=== PATIENT | female | born 1945 | race Native Hawaiian/Other Pacific Islander ===

== ENCOUNTER 2021-02-15 12:25 | Inpatient (IN) | payer MEDICARE, OTHER ==
[2021-02-15 13:44] LABS: #Eosinphils 0.4 10x3/uL (0.0-0.5); #Monocytes 0.6 10x3/uL (0.0-1.1); #Neutrophils 4.9 10x3/uL (1.5-8.4); %Basophils 0.6 % (0.0-2.0); %Eosinophils 6.1 % (0.0-6.0); %Lymphocytes 11.5 % (18.0-47.0); %Monocytes 9.2 % (0.0-10.0); %Neutrophils 72.2 % (40.0-75.0); Hemoglobin 6.6 g/dL (12.0-15.5); Mean Corpuscular HGB CONC 31.4 g/dL (32.0-36.0); Mean Corpuscular Hemoglobin 31.1 pg (27.0-33.0); Mean Corpuscular Volume 99.1 fl (81.6-98.3); Mean Platelet Volume 10.5 fl (7.4-10.4); Platelet Count 254 10x3/uL (150-450); RBC Distribution Width 13.6 % (11.5-14.5); Red Blood Cell (RBC) Count 2.12 10x6/uL (3.90-5.03); White Blood Cell (WBC) Count 6.8 10x3/uL (3.5-10.5)
[2021-02-15 13:50] LABS: ALT (SGPT) 13 U/L (8-55); AST (SGOT) 14 U/L (5-34); Albumin 3.3 g/dL (3.4-4.8); Alkaline Phosphatase 73 U/L (40-110); Anion Gap 20 mmol/L (10-20); BUN (Urea Nitrogen) 124 mg/dL (9.8-20.1); Bilirubin, Total 0.7 mg/dL (0.2-1.2); Calc. Creatinine Clearance 0 mL/min (70-130); Calcium 8.7 mg/dL (7.8-10.44); Carbon Dioxide 22 mmol/L (23-31); Chloride 104 mmol/L (98-107); Globulin 2.2 g/dL (2.4-3.5); Glucose 191 mg/dL (83-110); Magnesium 2.6 mg/dL (1.6-2.6); Potassium 4.8 mmol/L (3.5-5.1); Protein, Total 5.5 g/dL (5.8-8.1); Sodium 141 mmol/L (136-145)
[2021-02-15 13:58] LABS: Phosphorus 7.4 mg/dL (2.3-4.7)
[2021-02-15 14:42] LABS: CKMB 2.1 ng/mL (0-6.6)
[2021-02-15] MEDS ORDERED: Senokot S 8.6-50 MG TAB PO PRN (15:39)
[2021-02-15] MEDS ORDERED: Ondansetron PF 4 MG/2 ML Vial IVP PRN (15:39)
[2021-02-15] MEDS ORDERED: HYDROcodone/Acetaminophen 5/325 mg Tablet PO PRN (15:39)
[2021-02-15] MEDS ORDERED: Calcium Carbonate 500 MG ChewTAB PO PRN (15:39)
[2021-02-15] MEDS ORDERED: Acetaminophen 325 MG TAB PO PRN (15:39)
[2021-02-15] MEDS ORDERED: Furosemide 100 MG/10 ML VIAL SLOW IVP SCH (15:45)
[2021-02-15] MEDS ORDERED: HumaLOG 300 UNITS/3 ML VIAL SC PRN (16:06)
[2021-02-15] MEDS ORDERED: Dextrose 50% Abboject 50 ML SYRINGE SLOW IVP PRN (16:06)
[2021-02-15] MEDS ORDERED: Dextrose 5% in Water 1,000 ML IV PRN (16:06)
[2021-02-15 16:59] VITALS: BMI 32.7
[2021-02-15] MEDS: hydrALAZINE 20 MG/ML VIAL SLOW IVP PRN ×2 (18:32→21:50)
[2021-02-15 19:46] LABS: Troponin I 0.098 ng/mL (< 0.028)
[2021-02-16] MEDS ORDERED: cloNIDine 0.1 MG TAB PO SCH (00:30)
[2021-02-16] MEDS ORDERED: NIFEdipine XL 60 MG TAB PO SCH (01:00)
[2021-02-16] MEDS: hydrALAZINE 20 MG/ML VIAL SLOW IVP PRN (04:02)
[2021-02-16 06:08] LABS: #Eosinphils 0.8 10x3/uL (0.0-0.5); #Monocytes 0.9 10x3/uL (0.0-1.1); #Neutrophils 6.3 10x3/uL (1.5-8.4); %Basophils 0.4 % (0.0-2.0); %Eosinophils 8.3 % (0.0-6.0); %Lymphocytes 12.1 % (18.0-47.0); %Monocytes 9.6 % (0.0-10.0); %Neutrophils 68.1 % (40.0-75.0); Hemoglobin 7.9 g/dL (12.0-15.5); Mean Corpuscular HGB CONC 31.9 g/dL (32.0-36.0); Mean Corpuscular Volume 94.3 fl (81.6-98.3); Mean Platelet Volume 10.2 fl (7.4-10.4); Platelet Count 316 10x3/uL (150-450); RBC Distribution Width 17.2 % (11.5-14.5); Red Blood Cell (RBC) Count 2.63 10x6/uL (3.90-5.03); White Blood Cell (WBC) Count 9.2 10x3/uL (3.5-10.5)
[2021-02-16 06:16] LABS: Anion Gap 22 mmol/L (10-20); BUN (Urea Nitrogen) 122 mg/dL (9.8-20.1); Calc. Creatinine Clearance 4 mL/min (70-130); Calcium 9.2 mg/dL (7.8-10.44); Carbon Dioxide 19 mmol/L (23-31); Chloride 106 mmol/L (98-107); Glucose 111 mg/dL (83-110); Iron 56 ug/dL (50-170); Iron Binding Capacity, Total 165 mcg/dL (265-497); Potassium 4.4 mmol/L (3.5-5.1); Sodium 143 mmol/L (136-145)
[2021-02-16] MEDS ORDERED: Mometasone 100 MCG/Formoterol 5 MCG 120 PUFF INHALER INH SCH (06:30)
[2021-02-16 06:47] LABS: Ferritin 840.75 ng/mL (10-291)
[2021-02-16] MEDS ORDERED: Metolazone 5 MG TAB PO SCH (08:30)
[2021-02-16] MEDS ORDERED: Sevelamer Carbonate 800 MG TAB PO SCH (08:30)
[2021-02-16 08:31] LABS: HBSAg Index 0.14 S/CO (0-0.99); Hep B Surf Ag NonReactive S/CO (NonReactive)
[2021-02-16] MEDS ORDERED: Metolazone 2.5 MG TAB PO SCH (09:00)
[2021-02-16] MEDS ORDERED: Furosemide 100 MG/10 ML VIAL SLOW IVP SCH (09:00)
[2021-02-16] MEDS: Calcitriol 0.25 MCG CAP PO SCH (09:29)
[2021-02-16] MEDS: Carvedilol 25 MG TAB PO SCH ×2 (09:29→20:00)
[2021-02-16] MEDS: Enoxaparin Sodium 30 MG/0.3 ML SYRINGE SC SCH (09:29)
[2021-02-16] MEDS: NIFEdipine XL 60 MG TAB PO SCH (09:30)
[2021-02-16] MEDS: EPOETIN ALFA-EPBX (ESRD) 10,000 UNIT/ML VIAL SC SCH (09:30)
[2021-02-16] MEDS: hydrALAZINE 25 MG TAB PO SCH ×2 (09:30→14:17)
[2021-02-16] MEDS: Sevelamer Carbonate 800 MG TAB PO SCH ×2 (11:10→17:42)
[2021-02-16 11:32] LABS: Hemoglobin A1c 4.9 % (4.0-6.0)
[2021-02-16 12:17] LABS: Vitamin B12 744 pg/mL (211-911)
[2021-02-16 12:27] LABS: HBCM Index 0.04 S/CO (0-0.79); Hep A IgM AB Non-Reactive (NonReactive); Hep A IgM S/CO 0.26 S/CO (0-0.79); Hep C IgG Ab Non-Reactive (NonReactive); Hep C Index 0.05 S/CO (0-0.79); Hepatitis B Core IgM Abs Non-Reactive (NonReactive)
[2021-02-16] MEDS: Furosemide 40 MG/4 ML VIAL SLOW IVP SCH (14:17)
[2021-02-16] MEDS ORDERED: Digoxin 0.5 MG/2 ML AMP SLOW IVP SCH (16:45)
[2021-02-16 18:29] LABS: CKMB 1.7 ng/mL (0-6.6)
[2021-02-16] MEDS: ALPRAZolam 0.5 MG TAB PO SCH (19:59)
[2021-02-16] MEDS: Mometasone/Formoterol 60 PUFF AER INH SCH (20:05)
[2021-02-16 21:06] LABS: SARS-CoV-2 PCR by NAA Not Detected (NotDetected)
[2021-02-16 23:59] LABS: CKMB 1.4 ng/mL (0-6.6)
[2021-02-17 06:09] LABS: #Eosinphils 0.6 10x3/uL (0.0-0.5); #Neutrophils 4.2 10x3/uL (1.5-8.4); %Basophils 0.3 % (0.0-2.0); %Eosinophils 8.5 % (0.0-6.0); %Lymphocytes 15.7 % (18.0-47.0); %Monocytes 14.1 % (0.0-10.0); %Neutrophils 61.1 % (40.0-75.0); Hemoglobin 6.8 g/dL (12.0-15.5); Mean Corpuscular HGB CONC 31.1 g/dL (32.0-36.0); Mean Corpuscular Hemoglobin 30.1 pg (27.0-33.0); Mean Corpuscular Volume 96.9 fl (81.6-98.3); Mean Platelet Volume 10.5 fl (7.4-10.4); Platelet Count 255 10x3/uL (150-450); RBC Distribution Width 17.4 % (11.5-14.5); Red Blood Cell (RBC) Count 2.26 10x6/uL (3.90-5.03); White Blood Cell (WBC) Count 6.8 10x3/uL (3.5-10.5)
[2021-02-17] MEDS: Furosemide 40 MG/4 ML VIAL SLOW IVP SCH (06:24)
[2021-02-17 06:26] LABS: Anion Gap 19 mmol/L (10-20); Calc. Creatinine Clearance 4 mL/min (70-130); Calcium 8.6 mg/dL (7.8-10.44); Carbon Dioxide 20 mmol/L (23-31); Chloride 108 mmol/L (98-107); Glucose 91 mg/dL (83-110); Potassium 4.6 mmol/L (3.5-5.1); Sodium 142 mmol/L (136-145)
[2021-02-17 06:36] LABS: BUN (Urea Nitrogen) 114 mg/dL (9.8-20.1)
[2021-02-17 06:49] LABS: CKMB 1.2 ng/mL (0-6.6)
[2021-02-17] MEDS ORDERED: Magnesium Citrate 300 ML BOT PO SCH ×2 (07:30→18:15)
[2021-02-17] MEDS: Calcitriol 0.25 MCG CAP PO SCH (08:22)
[2021-02-17] MEDS: Carvedilol 25 MG TAB PO SCH ×2 (08:22→20:25)
[2021-02-17] MEDS: Sevelamer Carbonate 800 MG TAB PO SCH ×3 (08:22→17:18)
[2021-02-17] MEDS: NIFEdipine XL 60 MG TAB PO SCH (08:23)
[2021-02-17] MEDS: Enoxaparin Sodium 30 MG/0.3 ML SYRINGE SC SCH (08:23)
[2021-02-17] MEDS ORDERED: Metolazone 2.5 MG TAB PO SCH (08:30)
[2021-02-17] MEDS ORDERED: Metolazone 5 MG TAB PO SCH (08:30)
[2021-02-17] MEDS: Mometasone/Formoterol 60 PUFF AER INH SCH ×2 (08:55→19:15)
[2021-02-17] MEDS ORDERED: Dronedarone HCl 400 MG TAB PO SCH (09:30)
[2021-02-17] MEDS ORDERED: EPINEPHrine 1 MG/ML AMP ONE (09:42)
[2021-02-17] MEDS ORDERED: Bupivacaine 0.25% HCL 30 ML VIAL ONE (09:42)
[2021-02-17] MEDS ORDERED: PROPOFOL 20 ML ONE (09:59)
[2021-02-17] MEDS ORDERED: Lidocaine 1% PF 5 ML VIAL ONE (09:59)
[2021-02-17] MEDS ORDERED: Fentanyl 100 MCG/2 ML VIAL ONE (09:59)
[2021-02-17 12:29] LABS: Hep B Surf Ag Non-Reactive S/CO (NonReactive)
[2021-02-17 12:33] LABS: HBSAg Index 0.19 S/CO (0-0.99)
[2021-02-17] MEDS: Dronedarone HCl 400 MG TAB PO SCH (17:18)
[2021-02-17] MEDS ORDERED: HYDROcodone/Acetaminophen 5/325 mg Tablet PO PRN (19:18)
[2021-02-17] MEDS: ALPRAZolam 0.5 MG TAB PO SCH (20:25)
[2021-02-17] MEDS: Apixaban 5 MG TAB PO SCH (20:25)
[2021-02-17 21:22] LABS: HBSAB Concentration Less than 8.00 mIU/mL; Hep B Core Total Ab Non-Reactive (NonReactive); Hep B Core Total Index 0.05 S/CO (0-0.79); Hep B Surf AB Non-Reactive (NonReactive); Hep C IgG Ab Non-Reactive (NonReactive); Hep C Index 0.05 S/CO (0-0.79)
[2021-02-18 05:40] LABS: #Basophils 0.1 10x3/uL (0.0-0.2); #Eosinphils 0.7 10x3/uL (0.0-0.5); #Monocytes 1.1 10x3/uL (0.0-1.1); #Neutrophils 4.3 10x3/uL (1.5-8.4); %Basophils 0.7 % (0.0-2.0); %Eosinophils 9.5 % (0.0-6.0); %Lymphocytes 16.5 % (18.0-47.0); %Monocytes 14.6 % (0.0-10.0); %Neutrophils 58.2 % (40.0-75.0); Hemoglobin 8.8 g/dL (12.0-15.5); Mean Corpuscular Hemoglobin 30.2 pg (27.0-33.0); Mean Corpuscular Volume 94.5 fl (81.6-98.3); Mean Platelet Volume 10.1 fl (7.4-10.4); Platelet Count 275 10x3/uL (150-450); RBC Distribution Width 16.2 % (11.5-14.5); Red Blood Cell (RBC) Count 2.91 10x6/uL (3.90-5.03); White Blood Cell (WBC) Count 7.3 10x3/uL (3.5-10.5)
[2021-02-18 06:04] LABS: Anion Gap 15 mmol/L (10-20); BUN (Urea Nitrogen) 78 mg/dL (9.8-20.1); Calc. Creatinine Clearance 6 mL/min (70-130); Calcium 8.4 mg/dL (7.8-10.44); Carbon Dioxide 26 mmol/L (23-31); Chloride 104 mmol/L (98-107); Glucose 85 mg/dL (83-110); Potassium 4.8 mmol/L (3.5-5.1); Sodium 140 mmol/L (136-145)
[2021-02-18] MEDS: Dronedarone HCl 400 MG TAB PO SCH ×2 (08:18→20:22)
[2021-02-18] MEDS: Calcitriol 0.25 MCG CAP PO SCH (08:18)
[2021-02-18] MEDS: Carvedilol 25 MG TAB PO SCH ×2 (08:18→20:22)
[2021-02-18] MEDS: Apixaban 5 MG TAB PO SCH ×2 (08:18→20:21)
[2021-02-18] MEDS: Sevelamer Carbonate 800 MG TAB PO SCH ×3 (08:18→20:31)
[2021-02-18] MEDS: NIFEdipine XL 60 MG TAB PO SCH (08:19)
[2021-02-18] MEDS: hydrALAZINE 25 MG TAB PO SCH ×3 (09:37→20:21)
[2021-02-18] MEDS: Mometasone/Formoterol 60 PUFF AER INH SCH ×2 (09:46→19:47)
[2021-02-18] MEDS ORDERED: Tuberculin PPD 0.1 ML VIAL I-DERMAL SCH (12:00)
[2021-02-18] MEDS: hydrALAZINE 20 MG/ML VIAL SLOW IVP PRN (12:06)
[2021-02-18] MEDS ORDERED: Recombivax (HEP-B) 5 MCG/0.5 ML VIAL IM ONE (13:21)
[2021-02-18] MEDS ORDERED: Hepatitis B Vaccine 10 MCG/0.5 ML SYR IM ONE (15:00)
[2021-02-18] MEDS: ALPRAZolam 0.5 MG TAB PO SCH (21:04)
[2021-02-19] MEDS: Temazepam 15 MG CAP PO PRN ×2 (02:05→21:31)
[2021-02-19] MEDS: Mometasone/Formoterol 60 PUFF AER INH SCH ×2 (07:33→18:50)
[2021-02-19] MEDS: Dronedarone HCl 400 MG TAB PO SCH ×2 (08:35→18:30)
[2021-02-19] MEDS: Apixaban 5 MG TAB PO SCH ×2 (08:35→21:31)
[2021-02-19] MEDS: Sevelamer Carbonate 800 MG TAB PO SCH ×3 (08:35→18:40)
[2021-02-19] MEDS: Calcitriol 0.25 MCG CAP PO SCH (08:35)
[2021-02-19] MEDS: NIFEdipine XL 60 MG TAB PO SCH ×2 (08:36→08:54)
[2021-02-19] MEDS: hydrALAZINE 25 MG TAB PO SCH ×4 (08:36→21:31)
[2021-02-19] MEDS: Carvedilol 25 MG TAB PO SCH ×2 (08:36→21:31)
[2021-02-19] MEDS ORDERED: diphenhydrAMINE 25 MG CAP PO PRN (12:40)
[2021-02-19] MEDS: ALPRAZolam 0.5 MG TAB PO SCH (21:31)
[2021-02-20 06:48] LABS: #Eosinphils 0.6 10x3/uL (0.0-0.5); #Monocytes 1.5 10x3/uL (0.0-1.1); #Neutrophils 5.2 10x3/uL (1.5-8.4); %Basophils 0.4 % (0.0-2.0); %Eosinophils 6.7 % (0.0-6.0); %Monocytes 16.3 % (0.0-10.0); %Neutrophils 57.3 % (40.0-75.0); Hemoglobin 9.3 g/dL (12.0-15.5); Mean Corpuscular HGB CONC 31.6 g/dL (32.0-36.0); Mean Corpuscular Hemoglobin 30.8 pg (27.0-33.0); Mean Corpuscular Volume 97.4 fl (81.6-98.3); Mean Platelet Volume 9.8 fl (7.4-10.4); Platelet Count 292 10x3/uL (150-450); RBC Distribution Width 15.9 % (11.5-14.5); Red Blood Cell (RBC) Count 3.02 10x6/uL (3.90-5.03); White Blood Cell (WBC) Count 9.1 10x3/uL (3.5-10.5)
[2021-02-20 07:01] LABS: Anion Gap 15 mmol/L (10-20); BUN (Urea Nitrogen) 23 mg/dL (9.8-20.1); Calc. Creatinine Clearance 9 mL/min (70-130); Calcium 8.4 mg/dL (7.8-10.44); Carbon Dioxide 26 mmol/L (23-31); Chloride 100 mmol/L (98-107); Glucose 83 mg/dL (83-110); Potassium 4.1 mmol/L (3.5-5.1); Sodium 137 mmol/L (136-145)
[2021-02-20] MEDS: Mometasone/Formoterol 60 PUFF AER INH SCH ×2 (07:56→19:26)
[2021-02-20] MEDS ORDERED: READ PPD TEST SITE PO SCH (09:00)
[2021-02-20] MEDS: Calcitriol 0.25 MCG CAP PO SCH (09:14)
[2021-02-20] MEDS: Apixaban 5 MG TAB PO SCH ×2 (09:14→22:04)
[2021-02-20] MEDS: Dronedarone HCl 400 MG TAB PO SCH ×2 (09:14→16:15)
[2021-02-20] MEDS: Sevelamer Carbonate 800 MG TAB PO SCH ×3 (09:14→16:15)
[2021-02-20] MEDS: Carvedilol 25 MG TAB PO SCH ×2 (09:14→22:03)
[2021-02-20] MEDS: NIFEdipine XL 60 MG TAB PO SCH (11:48)
[2021-02-20] MEDS: hydrALAZINE 25 MG TAB PO SCH ×3 (11:48→22:03)
[2021-02-20] MEDS ORDERED: Heparin 10,000 UNITS/ 10 ML VIAL CATH PRN (13:48)
[2021-02-20] MEDS: Temazepam 15 MG CAP PO PRN (22:03)
[2021-02-20] MEDS: ALPRAZolam 0.5 MG TAB PO SCH (22:04)
[2021-02-21 07:31] LABS: #Basophils 0.1 10x3/uL (0.0-0.2); #Eosinphils 0.6 10x3/uL (0.0-0.5); #Monocytes 1.5 10x3/uL (0.0-1.1); #Neutrophils 7.1 10x3/uL (1.5-8.4); %Basophils 0.5 % (0.0-2.0); %Eosinophils 5.9 % (0.0-6.0); %Monocytes 14.2 % (0.0-10.0); %Neutrophils 65.7 % (40.0-75.0); Hemoglobin 9.6 g/dL (12.0-15.5); Mean Corpuscular HGB CONC 31.6 g/dL (32.0-36.0); Mean Corpuscular Hemoglobin 30.7 pg (27.0-33.0); Mean Corpuscular Volume 97.1 fl (81.6-98.3); Mean Platelet Volume 9.8 fl (7.4-10.4); Platelet Count 314 10x3/uL (150-450); RBC Distribution Width 15.8 % (11.5-14.5); Red Blood Cell (RBC) Count 3.13 10x6/uL (3.90-5.03); White Blood Cell (WBC) Count 10.8 10x3/uL (3.5-10.5)
[2021-02-21 07:46] LABS: Anion Gap 16 mmol/L (10-20); BUN (Urea Nitrogen) 16 mg/dL (9.8-20.1); Calc. Creatinine Clearance 11 mL/min (70-130); Calcium 8.4 mg/dL (7.8-10.44); Carbon Dioxide 24 mmol/L (23-31); Chloride 103 mmol/L (98-107); Glucose 86 mg/dL (83-110); Magnesium 2.1 mg/dL (1.6-2.6); Potassium 3.9 mmol/L (3.5-5.1); Sodium 139 mmol/L (136-145)
[2021-02-21] MEDS: Mometasone/Formoterol 60 PUFF AER INH SCH ×2 (09:30→19:26)
[2021-02-21] MEDS: Dronedarone HCl 400 MG TAB PO SCH ×2 (09:44→17:14)
[2021-02-21] MEDS: Apixaban 5 MG TAB PO SCH ×2 (09:44→21:59)
[2021-02-21] MEDS: Calcitriol 0.25 MCG CAP PO SCH (09:44)
[2021-02-21] MEDS: Sevelamer Carbonate 800 MG TAB PO SCH ×3 (09:44→17:14)
[2021-02-21] MEDS: hydrALAZINE 25 MG TAB PO SCH ×3 (09:44→21:59)
[2021-02-21] MEDS: Carvedilol 25 MG TAB PO SCH ×2 (09:44→21:59)
[2021-02-21] MEDS: NIFEdipine XL 60 MG TAB PO SCH (09:45)
[2021-02-21] MEDS: ALPRAZolam 0.5 MG TAB PO SCH (21:59)
[2021-02-21] MEDS: Temazepam 15 MG CAP PO PRN (22:00)
[2021-02-22] MEDS: hydrALAZINE 25 MG TAB PO SCH ×4 (01:06→21:09)
[2021-02-22 06:33] LABS: Anion Gap 16 mmol/L (10-20); BUN (Urea Nitrogen) 27 mg/dL (9.8-20.1); Calc. Creatinine Clearance 7 mL/min (70-130); Carbon Dioxide 25 mmol/L (23-31); Chloride 104 mmol/L (98-107); Glucose 90 mg/dL (83-110); Magnesium 2.5 mg/dL (1.6-2.6); Sodium 141 mmol/L (136-145)
[2021-02-22 06:43] LABS: #Eosinphils 0.7 10x3/uL (0.0-0.5); #Monocytes 1.3 10x3/uL (0.0-1.1); #Neutrophils 5.4 10x3/uL (1.5-8.4); %Basophils 0.3 % (0.0-2.0); %Eosinophils 7.1 % (0.0-6.0); %Lymphocytes 18.7 % (18.0-47.0); %Monocytes 13.9 % (0.0-10.0); %Neutrophils 59.5 % (40.0-75.0); Hemoglobin 8.8 g/dL (12.0-15.5); Mean Corpuscular HGB CONC 31.7 g/dL (32.0-36.0); Mean Corpuscular Hemoglobin 30.3 pg (27.0-33.0); Mean Corpuscular Volume 95.9 fl (81.6-98.3); Mean Platelet Volume 9.6 fl (7.4-10.4); Platelet Count 288 10x3/uL (150-450); RBC Distribution Width 16.1 % (11.5-14.5); White Blood Cell (WBC) Count 9.1 10x3/uL (3.5-10.5)
[2021-02-22] MEDS: Mometasone/Formoterol 60 PUFF AER INH SCH ×2 (07:30→17:18)
[2021-02-22] MEDS: Dronedarone HCl 400 MG TAB PO SCH ×2 (08:48→16:55)
[2021-02-22] MEDS: Apixaban 5 MG TAB PO SCH ×2 (08:49→21:10)
[2021-02-22] MEDS: Sevelamer Carbonate 800 MG TAB PO SCH ×3 (08:49→16:55)
[2021-02-22] MEDS: Carvedilol 25 MG TAB PO SCH ×2 (08:50→21:09)
[2021-02-22] MEDS: Calcitriol 0.25 MCG CAP PO SCH (08:50)
[2021-02-22] MEDS: NIFEdipine XL 60 MG TAB PO SCH (14:12)
[2021-02-22] MEDS: ALPRAZolam 0.5 MG TAB PO SCH (21:09)
[2021-02-22 22:12] LABS: QuantiFERON-TB Gold Plus Negative (Negative)
[2021-02-23 05:16] LABS: Anion Gap 17 mmol/L (10-20); BUN (Urea Nitrogen) 41 mg/dL (9.8-20.1); Calc. Creatinine Clearance 6 mL/min (70-130); Calcium 9.1 mg/dL (7.8-10.44); Carbon Dioxide 26 mmol/L (23-31); Chloride 104 mmol/L (98-107); Glucose 98 mg/dL (83-110); Potassium 4.1 mmol/L (3.5-5.1); Sodium 143 mmol/L (136-145)
[2021-02-23 05:22] LABS: #Eosinphils 0.7 10x3/uL (0.0-0.5); #Monocytes 1.1 10x3/uL (0.0-1.1); %Basophils 0.4 % (0.0-2.0); %Eosinophils 6.7 % (0.0-6.0); %Monocytes 11.8 % (0.0-10.0); %Neutrophils 61.5 % (40.0-75.0); Hemoglobin 9.8 g/dL (12.0-15.5); Mean Corpuscular HGB CONC 30.9 g/dL (32.0-36.0); Mean Corpuscular Volume 96.9 fl (81.6-98.3); Mean Platelet Volume 9.5 fl (7.4-10.4); Platelet Count 323 10x3/uL (150-450); RBC Distribution Width 16.3 % (11.5-14.5); Red Blood Cell (RBC) Count 3.27 10x6/uL (3.90-5.03); White Blood Cell (WBC) Count 9.7 10x3/uL (3.5-10.5)
[2021-02-23] MEDS: hydrALAZINE 20 MG/ML VIAL SLOW IVP PRN (05:57)
[2021-02-23] MEDS: Mometasone/Formoterol 60 PUFF AER INH SCH (07:20)
[2021-02-23] MEDS ORDERED: hydrOXYzine 25 MG TAB PO SCH (09:00)
[2021-02-23 11:16] VITALS: BP 171/57; TEMP 98.2
[2021-02-23] MEDS: Carvedilol 25 MG TAB PO SCH (11:29)
[2021-02-23] MEDS: Sevelamer Carbonate 800 MG TAB PO SCH (11:29)
[2021-02-23] MEDS: Calcitriol 0.25 MCG CAP PO SCH (11:29)
[2021-02-23] MEDS: Apixaban 5 MG TAB PO SCH (11:29)
[2021-02-23] MEDS: NIFEdipine XL 60 MG TAB PO SCH (11:29)
[2021-02-23] MEDS: hydrALAZINE 25 MG TAB PO SCH (11:30)
[2021-02-23] MEDS: Dronedarone HCl 400 MG TAB PO SCH (11:30)
[2021-02-23] MEDS: EPOETIN ALFA-EPBX (ESRD) 10,000 UNIT/ML VIAL SC SCH (12:47)
== END 2021-02-23 13:35 | disposition home health service (06) | DRG 291 ==
LOC: CSHERS 12:25 → CSHTELE 16:02
PROVIDERS: ADMIT Emergency Medicine; ATTEND Internal Medicine
PROC: 30233N1 Transfusion of Nonautologous Red Blood Cells into Peripheral Vein, Percutaneous Approach (ICD-10-PCS; 2021-02-15)
PROC: 0JH63XZ Insertion of Tunneled Vascular Access Device into Chest Subcutaneous Tissue and Fascia, Percutaneous Approach (ICD-10-PCS; principal; 2021-02-17)
PROC: 02HV33Z Insertion of Infusion Device into Superior Vena Cava, Percutaneous Approach (ICD-10-PCS; 2021-02-17)
PROC: B518ZZA Fluoroscopy of Superior Vena Cava, Guidance (ICD-10-PCS; 2021-02-17)
PROC: 5A1D70Z Performance of Urinary Filtration, Intermittent, Less than 6 Hours Per Day (ICD-10-PCS; 2021-02-17)
DX: I13.2 Hypertensive heart and chronic kidney disease with heart failure and with stage 5 chronic kidney disease, or end stage renal disease (principal); N18.6 End stage renal disease; E87.2 Acidosis; I50.32 Chronic diastolic (congestive) heart failure; N25.81 Secondary hyperparathyroidism of renal origin; D64.9 Anemia, unspecified; E11.22 Type 2 diabetes mellitus with diabetic chronic kidney disease; Z20.822 Contact with and (suspected) exposure to COVID-19; D63.1 Anemia in chronic kidney disease; E83.39 Other disorders of phosphorus metabolism; E87.70 Fluid overload, unspecified; Z90.49 Acquired absence of other specified parts of digestive tract; I48.0 Paroxysmal atrial fibrillation; K59.00 Constipation, unspecified; Z79.82 Long term (current) use of aspirin; Z79.899 Other long term (current) drug therapy
CPT/HCPCS: 36415; 36416; 36430; 71045; 71046; 80048; 80053; 80074; 82274; 82553; 82607; 82728; 82746; 83036; 83540; 83550; 83615; 83735; 83880; 83970; 84100; 84443; 84484; 85025; 85046; 86480; 86704; 86706; 86803; 86850; 86900; 86901; 87340; 87635; 90744; 90935; 93005; 93306; 94760; C1752; G0257; J0171; J0360; J0690; J1160; J1642; J1644; J1650; J1815; J1940; J2405; J2704; J3010; J3490; P9016; Q5105; S0020; U0003; U0005

== ENCOUNTER 2023-02-28 06:56 | Inpatient (IN) | payer MEDICARE, OTHER ==
[2023-02-28] MEDS ORDERED: Metoprolol Tartrate 5 MG/5 ML VIAL ONE ×2 (07:16→07:56)
[2023-02-28 07:39] LABS: #Eosinphils 0.2 10x3/uL (0.0-0.5); #Monocytes 0.6 10x3/uL (0.0-1.1); %Basophils 0.4 % (0.0-2.0); %Eosinophils 2.1 % (0.0-6.0); %Lymphocytes 18.2 % (18.0-47.0); %Monocytes 7.6 % (0.0-10.0); %Neutrophils 71.5 % (40.0-75.0); Hemoglobin 10.1 g/dL (12.0-15.5); Mean Corpuscular HGB CONC 32.8 g/dL (32.0-36.0); Mean Corpuscular Hemoglobin 32.4 pg (27.0-33.0); Mean Corpuscular Volume 98.7 fl (81.6-98.3); Mean Platelet Volume 9.5 fl (7.4-10.4); Platelet Count 318 10x3/uL (150-450); RBC Distribution Width 13.4 % (11.5-14.5); Red Blood Cell (RBC) Count 3.12 10x6/uL (3.90-5.03); White Blood Cell (WBC) Count 8.4 10x3/uL (3.5-10.5)
[2023-02-28 08:15] LABS: ALT (SGPT) 11 U/L (8-55); AST (SGOT) 19 U/L (5-34); Albumin 4.1 g/dL (3.4-4.8); Alkaline Phosphatase 83 U/L (40-110); Anion Gap 24 mmol/L (10-20); BUN (Urea Nitrogen) 61 mg/dL (9.8-20.1); Bilirubin, Total 0.6 mg/dL (0.2-1.2); Calc. Creatinine Clearance 0 mL/min (70-130); Calcium 9.8 mg/dL (7.8-10.44); Carbon Dioxide 24 mmol/L (23-31); Chloride 100 mmol/L (98-107); Estimated GFR 4; Globulin 2.7 g/dL (2.4-3.5); Glucose 148 mg/dL (83-110); Magnesium 2.7 mg/dL (1.6-2.6); Potassium 4.9 mmol/L (3.5-5.1); Protein, Total 6.8 g/dL (5.8-8.1); Sodium 143 mmol/L (136-145)
[2023-02-28 08:58] LABS: CKMB 1.3 ng/mL (0-6.6)
[2023-02-28] MEDS ORDERED: Ondansetron ODT 4 MG TAB PO PRN (09:35)
[2023-02-28] MEDS ORDERED: Ondansetron PF 4 MG/2 ML Vial IVP PRN (09:35)
[2023-02-28] MEDS ORDERED: Acetaminophen 325 MG TAB PO PRN (09:35)
[2023-02-28] MEDS ORDERED: Diltiazem 125 MG/25 ML SDV ONE (09:40)
[2023-02-28] MEDS ORDERED: Diltiazem 125 MG in Sodium Chloride 0.9% 100 ML IVPB SCH (09:45)
[2023-02-28 11:24] LABS: Magnesium 2.8 mg/dL (1.6-2.6)
[2023-02-28 14:04] LABS: Hemoglobin A1c 5.3 % (4.0-6.0)
[2023-02-28 14:10] LABS: Troponin I 0.426 ng/mL (< 0.028)
[2023-02-28 14:48] LABS: HBSAg Index 0.17 S/CO (0-0.99); Hep B Surf Ag Non-Reactive S/CO (NonReactive)
[2023-02-28] MEDS ORDERED: Apixaban 5 MG TAB PO SCH (15:01)
[2023-02-28] MEDS ORDERED: hydrALAZINE 20 MG/ML VIAL SLOW IVP PRN (15:03)
[2023-02-28] MEDS: Carvedilol 25 MG TAB PO SCH (15:18)
[2023-02-28 15:44] VITALS: BMI 31.5
[2023-02-28] MEDS ORDERED: Apixaban 2.5 MG TAB PO SCH (16:00)
[2023-02-28] MEDS: Dronedarone HCl 400 MG TAB PO SCH (16:15)
[2023-02-28] MEDS ORDERED: Doxepin HCl 10 MG CAP PO PRN (16:36)
[2023-02-28] MEDS: Sevelamer Carbonate 800 MG TAB PO SCH (16:54)
[2023-02-28 17:27] LABS: HBSAB Concentration Less than 8.00 mIU/mL; Hep B Core Total Ab Non-Reactive (NonReactive); Hep B Core Total Index 0.11 S/CO (0-0.79); Hep B Surf AB Non-Reactive (NonReactive); Hep C IgG Ab Non-Reactive (NonReactive); Hep C Index 0.09 S/CO (0-0.79)
[2023-02-28 20:00] LABS: Troponin I 0.363 ng/mL (< 0.028)
[2023-02-28] MEDS: Apixaban 2.5 MG TAB PO SCH (20:23)
[2023-02-28] MEDS ORDERED: hydrALAZINE 25 MG TAB PO SCH (21:00)
[2023-02-28] MEDS ORDERED: Atorvastatin Calcium 40 MG TAB PO SCH (21:00)
[2023-03-01 03:41] LABS: #Eosinphils 0.3 10x3/uL (0.0-0.5); #Monocytes 0.7 10x3/uL (0.0-1.1); #Neutrophils 3.3 10x3/uL (1.5-8.4); %Basophils 0.3 % (0.0-2.0); %Eosinophils 4.1 % (0.0-6.0); %Lymphocytes 29.3 % (18.0-47.0); %Monocytes 11.4 % (0.0-10.0); %Neutrophils 54.7 % (40.0-75.0); Hemoglobin 8.3 g/dL (12.0-15.5); Mean Corpuscular HGB CONC 32.4 g/dL (32.0-36.0); Mean Corpuscular Hemoglobin 32.2 pg (27.0-33.0); Mean Corpuscular Volume 99.2 fl (81.6-98.3); Mean Platelet Volume 9.2 fl (7.4-10.4); Platelet Count 250 10x3/uL (150-450); RBC Distribution Width 13.3 % (11.5-14.5); Red Blood Cell (RBC) Count 2.58 10x6/uL (3.90-5.03); White Blood Cell (WBC) Count 6.1 10x3/uL (3.5-10.5)
[2023-03-01 03:48] LABS: Anion Gap 15 mmol/L (10-20); BUN (Urea Nitrogen) 27 mg/dL (9.8-20.1); Calc. Creatinine Clearance 9 mL/min (70-130); Calcium 8.8 mg/dL (7.8-10.44); Carbon Dioxide 28 mmol/L (23-31); Chloride 103 mmol/L (98-107); Estimated GFR 7; Glucose 94 mg/dL (83-110); Potassium 4.2 mmol/L (3.5-5.1); Sodium 142 mmol/L (136-145)
[2023-03-01] MEDS: Levothyroxine Sodium 75 MCG TAB PO SCH (05:51)
[2023-03-01] MEDS ORDERED: NIFEdipine XL 60 MG TAB PO SCH (09:00)
[2023-03-01] MEDS ORDERED: Cholecalciferol 1,000 UNITS (25 MCG) TAB PO SCH ×2 (09:00→11:00)
[2023-03-01] MEDS: Carvedilol 25 MG TAB PO SCH (09:04)
[2023-03-01] MEDS: Sevelamer Carbonate 800 MG TAB PO SCH ×3 (09:04→18:13)
[2023-03-01] MEDS: Apixaban 2.5 MG TAB PO SCH ×2 (09:04→21:05)
[2023-03-01] MEDS: Ascorbic Acid 500 mg Chewable Tablet PO SCH (09:04)
[2023-03-01] MEDS: Dronedarone HCl 400 MG TAB PO SCH (09:04)
[2023-03-01] MEDS: Sertraline 100 MG TAB PO SCH (09:06)
[2023-03-01] MEDS ORDERED: Famotidine 20 MG TAB PO SCH (10:45)
[2023-03-01] MEDS ORDERED: NOREPINEPHRINE 8 MG/250 ML-D5W 250 ML IVPB SCH (14:15)
[2023-03-01] MEDS ORDERED: Sodium Chloride 0.9% 500 ML IV SCH (14:15)
[2023-03-01] MEDS ORDERED: Albumin 25% 100 ML ONE (14:28)
[2023-03-01] MEDS: Albumin 25% 25 GM/100 ML BOT IVPB SCH ×3 (14:30→21:11)
[2023-03-01] MEDS ORDERED: Albumin 25% 25 GM/100 ML BOT IVPB SCH (18:00)
[2023-03-01] MEDS ORDERED: Atorvastatin Calcium 20 MG TAB PO SCH (21:00)
[2023-03-02 03:31] LABS: #Eosinphils 0.3 10x3/uL (0.0-0.5); #Monocytes 0.7 10x3/uL (0.0-1.1); #Neutrophils 4.1 10x3/uL (1.5-8.4); %Basophils 0.3 % (0.0-2.0); %Eosinophils 3.7 % (0.0-6.0); %Lymphocytes 24.3 % (18.0-47.0); %Monocytes 10.6 % (0.0-10.0); Hemoglobin 7.4 g/dL (12.0-15.5); Mean Corpuscular HGB CONC 31.9 g/dL (32.0-36.0); Mean Corpuscular Volume 100.4 fl (81.6-98.3); Mean Platelet Volume 9.2 fl (7.4-10.4); Platelet Count 234 10x3/uL (150-450); RBC Distribution Width 13.6 % (11.5-14.5); Red Blood Cell (RBC) Count 2.31 10x6/uL (3.90-5.03); White Blood Cell (WBC) Count 6.8 10x3/uL (3.5-10.5)
[2023-03-02 03:43] LABS: Anion Gap 18 mmol/L (10-20); BUN (Urea Nitrogen) 48 mg/dL (9.8-20.1); Calc. Creatinine Clearance 6 mL/min (70-130); Calcium 8.7 mg/dL (7.8-10.44); Carbon Dioxide 27 mmol/L (23-31); Chloride 102 mmol/L (98-107); Estimated GFR 5; Glucose 75 mg/dL (83-110); Magnesium 2.6 mg/dL (1.6-2.6); Potassium 5.6 mmol/L (3.5-5.1); Sodium 141 mmol/L (136-145)
[2023-03-02] MEDS: Albumin 25% 25 GM/100 ML BOT IVPB SCH ×2 (04:05→10:06)
[2023-03-02] MEDS: Levothyroxine Sodium 75 MCG TAB PO SCH (05:18)
[2023-03-02] MEDS: Sevelamer Carbonate 800 MG TAB PO SCH (07:50)
[2023-03-02] MEDS: Dronedarone HCl 400 MG TAB PO SCH ×2 (07:50→09:09)
[2023-03-02] MEDS ORDERED: Carvedilol 6.25 MG TAB PO SCH (08:00)
[2023-03-02] MEDS: Apixaban 2.5 MG TAB PO SCH (08:44)
[2023-03-02] MEDS: Ascorbic Acid 500 mg Chewable Tablet PO SCH (08:44)
[2023-03-02] MEDS ORDERED: Cholecalciferol 1,000 UNITS (25 MCG) TAB PO SCH (09:00)
[2023-03-02] MEDS ORDERED: Famotidine 20 MG TAB PO SCH (09:00)
[2023-03-02 09:44] VITALS: BP 149/70; TEMP 98.2
[2023-03-02] MEDS: Sertraline 100 MG TAB PO SCH (09:45)
== END 2023-03-02 16:45 | disposition home or self-care (01) | DRG 308 ==
LOC: CSHERS 06:56 → CSHERHOLD 12:12 → CSHICU 14:52 → CSHTELE 03-02 12:08
PROVIDERS: ADMIT Family Medicine; ATTEND Family Medicine
PROC: 5A1D70Z Performance of Urinary Filtration, Intermittent, Less than 6 Hours Per Day (ICD-10-PCS; 2023-02-28)
PROC: 3E033XZ Introduction of Vasopressor into Peripheral Vein, Percutaneous Approach (ICD-10-PCS; 2023-03-01)
PROC: 30233J1 Transfusion of Nonautologous Serum Albumin into Peripheral Vein, Percutaneous Approach (ICD-10-PCS; 2023-03-01)
PROC: 30233N1 Transfusion of Nonautologous Red Blood Cells into Peripheral Vein, Percutaneous Approach (ICD-10-PCS; principal; 2023-03-02)
DX: I48.19 Other persistent atrial fibrillation (principal); N18.6 End stage renal disease; I12.0 Hypertensive chronic kidney disease with stage 5 chronic kidney disease or end stage renal disease; E11.22 Type 2 diabetes mellitus with diabetic chronic kidney disease; D63.1 Anemia in chronic kidney disease; E78.5 Hyperlipidemia, unspecified; E03.9 Hypothyroidism, unspecified; I95.9 Hypotension, unspecified; T50.905A Adverse effect of unspecified drugs, medicaments and biological substances, initial encounter; Z88.8 Allergy status to other drugs, medicaments and biological substances; Z79.899 Other long term (current) drug therapy; Z90.49 Acquired absence of other specified parts of digestive tract; Z79.01 Long term (current) use of anticoagulants; Z98.890 Other specified postprocedural states
CPT/HCPCS: 36415; 36416; 36430; 71045; 80048; 80053; 82553; 83036; 83735; 83880; 84443; 84484; 85025; 86704; 86850; 86900; 86901; 90935; 93005; 93306; 94760; 94762; 96374; 96375; 96376; G0257; J2405; J3490; P9016; P9047